=== PATIENT | female | born 1945 | race Caucasian/White ===

== ENCOUNTER → 2017-05-01 | Outpatient (CLI) | payer OTHER | LOC: FIMAGING 14:01 | PROVIDERS: ATTEND Obstetrics & Gynecology | DX: Z12.31 Encounter for screening mammogram for malignant neoplasm of breast (principal) | CPT/HCPCS: G0202 ==

== ENCOUNTER 2017-11-17 18:34 | Emergency (ER) | payer OTHER ==
[2017-11-17] MEDS ORDERED: CEPHALEXIN 500 MG CAP PO ONE (19:24)
--- NOTE | 2017-11-17 19:24 | EDPHY ---
H & P Time Seen by Provider: 11/17/17 19:10 HPI/ROS: CHIEF COMPLAINT: Wound behind the left knee HISTORY OF PRESENT ILLNESS: Patient is been very busy over the last couple of days doing a lot of paperwork as her bank account at [facility] got mixed up with her sister's. She has been pretty preoccupied with that and then today noted this morning a wound on the back of her left knee. She put a lidocaine patch over it and presents tonight for evaluation. It is not painful, no drainage or discharge or pus, no leg pain, no known recent injury, no fever or chills. 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 Range of motion of the left knee with normal compartments and thigh and calf. She has a skin tear 2 cm x 1 cm and that posterior popliteal fossa. Surrounding 1 cm redness but not tender and no pus or drainage. No lymphangitis and no crepitus. Emergency Department course/MDM: Patient sustained a skin tear and has some surrounding erythema, she does not have systemic signs of infection sepsis or deep space infection. Standard wound care and dressing, will place on Keflex giving surrounding erythema with follow-up with her primary care doctor next week. Smoking Status: Never smoked Constitutional: Initial Vital Signs Temperature (C) 36.7 C 11/17/17 18:48 Heart Rate 73 11/17/17 18:48 Respiratory Rate 18 11/17/17 18:48 Blood Pressure 148/97 H 11/17/17 18:48 O2 Sat (%) 96 11/17/17 18:48 O2 Delivery Mode Room Air Allergies/Adverse Reactions: No Known Allergies Allergy (Verified 11/17/17 18:56) Home Medications: Medication Instructions Recorded Ambien 10 mg 1 tab PO PRN PRN 10/19/15 Cephalexin [Keflex] 500 mg PO QID #28 cap 11/17/17 MDM/Departure - MDM Medications Given: Discontinued Medications Cephalexin HCl (Keflex) 500 mg PO EDNOW ONE PRN Reason: Protocol Stop: 11/17/17 19:25 Last Admin: 11/17/17 19:34 Dose: 500 mg - Depart Disposition: Home, Routine, Self-Care Clinical Impression: skin tear left knee Condition: Good Instructions: Skin Tear (ED) Prescriptions: Cephalexin [Keflex] 500 mg PO QID #28 cap Referrals: Patrick Mayer MD [Primary Care Provider] - 11/21/17
[2017-11-17 19:38] VITALS: BP 146/82
== END 2017-11-17 19:44 | disposition home or self-care (01) ==
LOC: CED 18:34
DX: S81.012A Laceration without foreign body, left knee, initial encounter (principal); X58.XXXA Exposure to other specified factors, initial encounter

== ENCOUNTER → 2018-06-15 | Outpatient (CLI) | payer OTHER | LOC: FIMAGING 14:09 | PROVIDERS: ATTEND Internal Medicine | DX: Z12.31 Encounter for screening mammogram for malignant neoplasm of breast (principal); Z80.3 Family history of malignant neoplasm of breast ==

== ENCOUNTER → 2018-06-22 | Outpatient (CLI) | payer OTHER | LOC: CIMAGING 10:26 | PROVIDERS: ATTEND Internal Medicine | DX: E04.1 Nontoxic single thyroid nodule (principal) | CPT/HCPCS: 36415-PO; 76536-PO; 82607-90 ==